=== PATIENT | female | born 1975 | race African-American/Black ===

== ENCOUNTER 2018-08-10 08:27 | Emergency (ER) | payer SELFPAY ==
[~2018-08-10] VITALS: Ht 175.3 cm; Wt 102.1 kg
[2018-08-10] MEDS ORDERED: FAMOTIDINE 20 MG/2 ML VIAL IVP ONE (09:00)
[2018-08-10] MEDS ORDERED: IPRATRPIUM/ALBUTEROL 0.5/2.5MG 3 ML NEBU. NEB ONE (09:00)
[2018-08-10] MEDS ORDERED: predniSONE 10 MG TABLET PO ONE (09:00)
[2018-08-10] MEDS ORDERED: IV NORMAL SALINE 1000ML BAG 1,000 ML IV ONE (09:00)
[2018-08-10] MEDS ORDERED: ONDANSETRON PF 4 MG/2 ML VIAL. IV ONE (09:00)
--- NOTE | 2018-08-10 09:08 | PHYS DOC ---
Adult General Chief Complaint Chief Complaint: NAUSEA/VOMITING/DIARRHA HPI HPI Patient is a 43 year old female who presents with coughing up brown mucus, diarrhea, vomiting for the last 3 days. Review of Systems Review of Systems Constitutional: Denies fever or chills [] Eyes: Denies change in visual acuity, redness, or eye pain [] HENT: Denies nasal congestion or sore throat [] Respiratory: cough or shortness of breath [] Cardiovascular:Chest pain with coughing GI: epigastric abdominal pain, nausea, vomiting, denies bloody stools. + diarrhea [] : Denies dysuria or hematuria [] Musculoskeletal: Denies back pain or joint pain [] Integument: Denies rash or skin lesions [] Neurologic: Denies headache, focal weakness or sensory changes [] All other systems were reviewed and found to be within normal limits, except as documented in this note. Current Medications Current Medications Current Medications Medications (Trade) Dose Ordered Sig/Mil Start Time Stop Time Status Last Admin Dose Admin Albuterol/ Ipratropium (Duoneb) 3 ml 1X ONCE 08/10/18 09:00 08/10/18 09:36 DC 08/10/18 09:33 3 ML Famotidine (Pepcid Vial) 20 mg 1X ONCE 08/10/18 09:00 08/10/18 09:36 DC 08/10/18 09:45 20 MG Ondansetron HCl (Zofran) 4 mg 1X ONCE 08/10/18 09:00 08/10/18 09:36 DC 08/10/18 09:45 4 MG Prednisone (Prednisone) 50 mg 1X ONCE 08/10/18 09:00 08/10/18 09:36 DC 08/10/18 09:45 50 MG Sodium Chloride 1,000 ml @ 1,000 mls/hr 1X ONCE 08/10/18 09:00 08/10/18 09:59 DC 08/10/18 09:46 1,000 MLS/HR Allergies Allergies Allergies Coded Allergies Type Severity Reaction Last Updated Verified No Known Drug Allergies 08/10/18 No Physical Exam Physical Exam Constitutional: Well developed, well nourished, no acute distress, non-toxic appearance. [] HENT: Normocephalic, atraumatic, bilateral external ears normal, oropharynx moist, no oral exudates, nose normal. [] Eyes: PERRLA, EOMI, conjunctiva normal, no discharge. [] Neck: Normal range of motion, no tenderness, supple, no stridor. [] Cardiovascular:Heart rate regular rhythm, no murmur [] Lungs & Thorax: Bilateral upper and lower breath sounds inspiratory and expiratory wheezes with some coarse sounds to upper lobes to auscultation [] Abdomen: Bowel sounds normal, soft, epigastric tenderness, no masses, no pulsatile masses. [] Skin: Warm, dry, no erythema, no rash. [] Back: No tenderness, no CVA tenderness. [] Extremities: No tenderness, no cyanosis, no clubbing, ROM intact, no edema. [] Neurologic: Alert and oriented X 3, normal motor function, normal sensory function, no focal deficits noted. [] Psychologic: Affect normal, judgement normal, mood normal. [] Current Patient Data Vital Signs Vital Signs Date Time Temp Pulse Resp B/P (MAP) Pulse Ox O2 Delivery O2 Flow Rate FiO2 08/10/18 09:35 Room Air 98.0 08/10/18 09:33 98.1 82 18 134/88 (103) 97 98.1 Lab Values Laboratory Tests Test 08/10/18 08:40 08/10/18 08:42 08/10/18 08:45 08/10/18 09:20 Urine Collection Type Unknown Urine Color Yellow Urine Clarity Clear Urine pH 6.0 Urine Specific [place] >=1.030 Urine Protein Negative mg/dL (NEG-TRACE) Urine Glucose (UA) Negative mg/dL (NEG) Urine Ketones (Stick) Negative mg/dL (NEG) Urine Blood Negative (NEG) Urine Nitrite Negative (NEG) Urine Bilirubin Negative (NEG) Urine Urobilinogen Dipstick 0.2 mg/dL (0.2 mg/dL) Urine Leukocyte Esterase Negative (NEG) Urine RBC 0 /HPF (0-2) Urine WBC Occ /HPF (0-4) Urine Squamous Epithelial Cells Mod /LPF Urine Bacteria 0 /HPF (0-FEW) Urine Mucus Mod /LPF POC Urine HCG, Qualitative Hcg negative (Negative) White Blood Count 8.2 x10^3/uL (4.0-11.0) Red Blood Count 4.44 x10^6/uL (3.50-5.40) Hemoglobin 12.5 g/dL (12.0-15.5) Hematocrit 39.1 % (36.0-47.0) Mean Corpuscular Volume 88 fL (79-100) Mean Corpuscular Hemoglobin 28 pg (25-35) Mean Corpuscular Hemoglobin Concent 32 g/dL (31-37) Red Cell Distribution Width 15.4 % (11.5-14.5) H Platelet Count 316 x10^3/uL (140-400) Neutrophils (%) (Auto) 47 % (31-73) Lymphocytes (%) (Auto) 39 % (24-48) Monocytes (%) (Auto) 8 % (0-9) Eosinophils (%) (Auto) 5 % (0-3) H Basophils (%) (Auto) 1 % (0-3) Neutrophils # (Auto) 3.9 x10^3uL (1.8-7.7) Lymphocytes # (Auto) 3.2 x10^3/uL (1.0-4.8) Monocytes # (Auto) 0.6 x10^3/uL (0.0-1.1) Eosinophils # (Auto) 0.4 x10^3/uL (0.0-0.7) Basophils # (Auto) 0.1 x10^3/uL (0.0-0.2) Sodium Level 139 mmol/L (136-145) Potassium Level 3.8 mmol/L (3.5-5.1) Chloride Level 103 mmol/L (98-107) Carbon Dioxide Level 24 mmol/L (21-32) Anion Gap 12 (6-14) Blood Urea Nitrogen 9 mg/dL (7-20) Creatinine 0.7 mg/dL (0.6-1.0) Estimated GFR (Cockcroft-Gault) 91.8 BUN/Creatinine Ratio 13 (6-20) Glucose Level 107 mg/dL (70-99) H Calcium Level 8.8 mg/dL (8.5-10.1) Total Bilirubin 0.2 mg/dL (0.2-1.0) Aspartate Amino Transferase (AST) 13 U/L (15-37) L Alanine Aminotransferase (ALT) 23 U/L (14-59) Alkaline Phosphatase 76 U/L (46-116) Troponin I Quantitative < 0.017 ng/mL (0.000-0.055) Total Protein 7.6 g/dL (6.4-8.2) Albumin 3.6 g/dL (3.4-5.0) Albumin/Globulin Ratio 0.9 (1.0-1.7) L Influenza Type A Antigen Negative (NEGATIVE) Influenza Type B Antigen Negative (NEGATIVE) Laboratory Tests 08/10/18 08:45 Laboratory Tests 08/10/18 08:45 EKG EKG Sinus Rhythm and no STEMI[] Interpretation Time: [address] Martinez Radiology/Procedures Radiology/Procedures Chest xray Impressions: [facility] [address] [place] [address] IMAGING REPORT Signed PATIENT: GILDARDO FONTANEZ ACCOUNT: [id number] : 1975 LOCATION: ER AGE: 43 SEX: F EXAM STATUS: PRE ER ORD. PHYSICIAN: GAGANDEEP KINCAID APRN REASON: cough, wheezing PROCEDURE: CHEST PA & LATERAL EXAM: Chest, 2 views. HISTORY: Cough. Wheezing. COMPARISON: None. FINDINGS: 2 views the chest are obtained. There is increased right perihilar and infrahilar opacity. There is no consolidation, pleural effusion or pneumothorax. The heart is normal in size. IMPRESSION: Suspected right perihilar and infrahilar interstitial infiltrate. No consolidated pneumonia is seen. Electronically signed by: Kathy Day MD (08/10/2018 9:24 AM) [id number] DICTATED and SIGNED BY: KATHY DYA MD DATE: 08/10/18922 Course & Med Decision Making Course & Med Decision Making Patient is a 43 year old female who presents with coughing up brown mucus, diarrhea, vomiting for the last 3 days. Alert and oriented. Speaks in full clear sentences. Mucous membranes are moist. Skin is pink warm and dry. Lungs in all lobes have inspiratory ex 20 wheezing with upper lobes also having some coarse sounds. No extremity Edema. Abdomen is soft and nontender. Patient states she does have some epigastric burning that is from the vomiting. She denies any blood in her stool or vomit. PERRLA. She states she does have some shortness of air and chest pain especially with coughing. Chest x-ray shows Suspected right perihilar and infrahilar interstitial infiltrate. No consolidated pneumonia is seen. EKG shows sinus rhythm and no STEMI. Blood work is unremarkable. Urine shows no Infection. vital signs within normal limits. Influenza negative. Walking desat is 96%. Patient is diagnosed with pneumonia and needs to follow-up with her primary care next week. Patient states all medications as prescribed. Return to the ED if she cannot keep medications down and her symptoms are worsening. Dragon Disclaimer Dragon Disclaimer This electronic medical record was generated, in whole or in part, using a voice recognition dictation system. Departure Departure Impression: Primary Impression: Pneumonia Disposition: HOME, SELF-CARE Condition: STABLE Patient Instructions: Pneumonia, Adult Additional Instructions: Return if increased soa, chest pain , or dizziness. Return if you are unable to hold antibiotic down. Scripts Ondansetron (ONDANSETRON ODT) 4 Mg Tab.rapdis 1 TAB PO PRN Q6-8HRS, #20 TAB Prov: GAGANDEEP KINCAID APR08/10/18 Benzonatate (TESSALON PERLE) 100 Mg Capsule 1 CAP PO TID PRN for COUGH, #30 CAP Prov: GAGANDEEP KINCAID APRN 08/10/18 Albuterol Sulfate (Proair Hfa) 8.5 Gm Hfa.aer.ad 1 PUFF INH PRN Q6HRS PRN for SHORTNESS OF BREATH, #1 INHALER Prov: GAGANDEEP KINCAID APRN 08/10/18 Ibuprofen (IBUPROFEN) 600 Mg Tablet 600 MG PO PRN Q6HRS PRN for INFLAMMATION, #20 TAB Prov: GAGANDEEP KINCAID APRN 08/10/18 Methylprednisolone (MEDROL) 4 Mg Tab.ds.pk 1 PKG PO UD, #1 PKG Prov: GAGANDEEP KINCAID APRN 08/10/18 Azithromycin (AZITHROMYCIN TABLET) 250 Mg Tablet 1 PKG PO UD, #6 TAB Prov: GAGANDEEP KINCAID [employer] 08/10/18 Problem Qualifiers Primary Impression: Pneumonia Pneumonia type: due to unspecified organism Laterality: unspecified laterality Lung location: unspecified part of lung Qualified Codes: J18.9 - Pneumonia, unspecified organism GAGANDEEP KINCAID APRN Aug 10, 2018 09:08
[2018-08-10 09:14] LABS: BILIRUBIN,URINE NEGATIVE (NEG); CLARITY,URINE CLEAR; COLOR,URINE YELLOW; NITRITE,URINE NEGATIVE (NEG); PROTEIN,URINE NEGATIVE (NEG-TRACE); UROBILINOGEN,URINE 0.2 mg/dL (0.2 mg/dL)
[2018-08-10 09:18] LABS: BASO # 0.1 x10^3/uL (0.0-0.2); BASO % 1 % (0-3); EOS # 0.4 x10^3/uL (0.0-0.7); EOS % 5 % (0-3); HEMATOCRIT 39.1 % (36.0-47.0); HEMOGLOBIN 12.5 g/dL (12.0-15.5); LYMPH # 3.2 x10^3/uL (1.0-4.8); LYMPH % 39 % (24-48); MEAN CORPUSCULAR HEMOGLOBIN 28 pg (25-35); MEAN CORPUSCULAR HGB CONC 32 g/dL (31-37); MEAN CORPUSCULAR VOLUME 88 fL (79-100); MONO # 0.6 x10^3/uL (0.0-1.1); MONO % 8 % (0-9); NEUT # 3.9 x10^3uL (1.8-7.7); NEUT % 47 % (31-73); PLATELET COUNT 316 x10^3/uL (140-400); RED BLOOD COUNT 4.44 x10^6/uL (3.50-5.40); RED CELL DISTRIBUTION WIDTH 15.4 % (11.5-14.5); WHITE BLOOD COUNT 8.2 x10^3/uL (4.0-11.0)
[2018-08-10 09:22] LABS: CALCIUM 8.8 mg/dL (8.5-10.1); CREATININE 0.7 mg/dL (0.6-1.0); GFR 91.8; POTASSIUM 3.8 mmol/L (3.5-5.1)
[2018-08-10 09:27] LABS: ALBUMIN 3.6 g/dL (3.4-5.0); ALBUMIN/GLOBULIN RATIO 0.9 (1.0-1.7); TOTAL BILIRUBIN 0.2 mg/dL (0.2-1.0); TOTAL PROTEIN 7.6 g/dL (6.4-8.2)
--- NOTE | 2018-08-10 09:27 | RAD ---
EXAM: Chest, 2 views. HISTORY: Cough. Wheezing. COMPARISON: None. FINDINGS: 2 views the chest are obtained. There is increased right perihilar and infrahilar opacity. There is no consolidation, pleural effusion or pneumothorax. The heart is normal in size. IMPRESSION: Suspected right perihilar and infrahilar interstitial infiltrate. No consolidated pneumonia is seen. Electronically signed by: Kathy Saldana MD (08/10/2018 9:24 AM) [email or web address]
[2018-08-10 09:35] LABS: BACTERIA,URINE 0 /HPF (0-FEW); RBC,URINE 0 /HPF (0-2); SQUAMOUS EPITHELIAL CELL,UR MOD /LPF; WBC,URINE OCC /HPF (0-4)
[2018-08-10 09:47] LABS: INFLUENZA A PATIENT NEGATIVE (NEGATIVE); INFLUENZA B PATIENT NEGATIVE (NEGATIVE)
[2018-08-10] MEDS ORDERED: METH4TAB2 PO (09:55)
[2018-08-10] MEDS ORDERED: ALBU2.5V8 INH (09:55)
[2018-08-10] MEDS ORDERED: IBUP-1007 PO (09:55)
[2018-08-10] MEDS ORDERED: BENZ100C PO (09:55)
[2018-08-10] MEDS ORDERED: AZIT250T6 PO (09:55)
[2018-08-10] MEDS ORDERED: ONDA4TAB12 PO (10:01)
[2018-08-10 10:39] VITALS: BP 109/64
--- NOTE | 2018-08-15 11:38 | EKG ---
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
== END 2018-08-10 11:00 | disposition home or self-care (01) ==
LOC: ER 11:00
DX: J18.9 Pneumonia, unspecified organism (principal); R19.7 Diarrhea, unspecified; R11.2 Nausea with vomiting, unspecified; R10.13 Epigastric pain; R07.89 Other chest pain
CPT/HCPCS: 36415; 71046; 80053; 81001; 81025; 84484; 85025; 87804; 94640; 96361; 96374; 96375; 99284; J2405; J3490; J7030; J7512; J7620; 93005